=== PATIENT | female | born 1955 | race Caucasian/White ===

== ENCOUNTER → 2020-06-27 | Outpatient (CLI) | payer MEDICARE ==
[~2020-06-27] VITALS: Ht 154.9 cm; Wt 137.0 kg
[~2020-06-27] MED LIST: ARMOUR THYROID15 MG PO; ASPIRIN E.C. 8181 MG PO; NORMODYNE100 MG PO; PRAVACHOL10 MG PO; PRILOSEC 20MG20 MG PO
[2020-06-27 10:00] VITALS: BP 150/100; PULSE 64
== END ==
LOC: LIGHT 09:50
DX: E66.01 Morbid (severe) obesity due to excess calories (principal); Z68.43 Body mass index [BMI] 50.0-59.9, adult; E88.81 Metabolic syndrome and other insulin resistance; R73.01 Impaired fasting glucose
CPT/HCPCS: G0463